=== PATIENT | female | born 1975 | race Caucasian/White ===

== ENCOUNTER 2022-03-22 08:46 | Emergency (ER) | payer OTHER ==
[~2022-03-22] VITALS: Ht 167.7 cm; Wt 102.1 kg
[2022-03-22] MEDS ORDERED: morphine INJ 10 MG/ML 1ML (SYR OR VIAL) IVP STA (08:59)
[2022-03-22] MEDS ORDERED: HOLD METFORMIN - RECEIVED CONTRAST 20 ML VIAL IV SCH (09:15)
[2022-03-22] MEDS ORDERED: NS 100 ML (IVPB) BAG IV ONE (09:15)
[2022-03-22] MEDS ORDERED: CATHETER FLUSH 10 ML SYR IV PRN (09:15)
[2022-03-22] MEDS ORDERED: IOHEXOL 350 MG/ML 100 ML (OMNIPAQUE 350) VIAL IV ONE (09:15)
[2022-03-22 09:32] LABS: HEMATOCRIT 42 % (35-52); HEMOGLOBIN 13.6 g/dL (11.5-16.0); MEAN CORPUSCULAR HEMOGLOBIN 28 pg (25-34); MEAN CORPUSCULAR HGB CONC 33 g/dL (32-36); MEAN CORPUSCULAR VOLUME 86 fL (80-99); MEAN PLATELET VOLUME 10.1 fL (9.0-12.2); PLATELET COUNT 227 10^3/uL (130-400); WHITE BLOOD COUNT 9.4 10^3/uL (4.3-11.0)
[2022-03-22 09:37] LABS: ALBUMIN 3.9 GM/DL (3.2-4.5); CHLORIDE 102 MMOL/L (98-107); POTASSIUM 4.1 MMOL/L (3.6-5.0); SODIUM 138 MMOL/L (135-145)
[2022-03-22 09:38] LABS: CALCIUM 9.5 MG/DL (8.5-10.1)
[2022-03-22 09:40] LABS: GLUCOSE 114 MG/DL (70-105); TOTAL PROTEIN 7.6 GM/DL (6.4-8.2)
[2022-03-22 09:41] LABS: BILIRUBIN,TOTAL 0.4 MG/DL (0.1-1.0); CARBON DIOXIDE 25 MMOL/L (21-32)
[2022-03-22 09:43] LABS: ALKALINE PHOSPHATASE 69 U/L (40-136); CREATININE SERUM 0.75 MG/DL (0.60-1.30); GFR ESTIMATED 98
[2022-03-22 09:44] LABS: BUN/CREATININE RATIO 20
[2022-03-22 09:45] LABS: BILIRUBIN,DIRECT 0.2 MG/DL (0.0-0.3); BILIRUBIN,INDIRECT 0.2 MG/DL
[2022-03-22 09:46] LABS: ALANINE AMINOTRANSFERASE 14 U/L (0-55)
[2022-03-22 09:46] LABS: BILIRUBIN,URINE NEGATIVE (NEGATIVE); CLARITY,URINE CLEAR; COLOR,URINE YELLOW; GLUCOSE, URINE (UA) NEGATIVE (NEGATIVE); KETONES,URINE NEGATIVE (NEGATIVE); LEUKOCYTE ESTERASE ,URINE NEGATIVE (NEGATIVE); NITRITE,URINE NEGATIVE (NEGATIVE); PH,URINE 7.5 (5-9); PROTEIN,URINE NEGATIVE (NEGATIVE)
[2022-03-22 09:59] LABS: BACTERIA,URINE NEGATIVE /HPF; WBC,URINE RARE /HPF
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
[2022-03-22] MEDS ORDERED: ORPHENADRINE 60 MG/2 ML (NORFLEX) AMP (ED ONLY) IV ONE (11:00)
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
[2022-03-22] MEDS ORDERED: TRAM-42 PO (11:09)
[2022-03-22 11:31] VITALS: BP 155/89
== END 2022-03-22 11:31 | disposition home or self-care (01) ==
LOC: ER 08:49 → EDBD 08:49 → ER 11:31
DX: S40.012A Contusion of left shoulder, initial encounter (principal); S30.1XXA Contusion of abdominal wall, initial encounter; S70.02XA Contusion of left hip, initial encounter; Z32.02 Encounter for pregnancy test, result negative; Z79.01 Long term (current) use of anticoagulants; V89.2XXA Person injured in unspecified motor-vehicle accident, traffic, initial encounter; Y92.410 Unspecified street and highway as the place of occurrence of the external cause
CPT/HCPCS: 51701; 70450; 71260; 72125; 73030; 74177; 80048; 80076; 81000; 84703; 85027; 99284; G0480; 36415; 80320